=== PATIENT | female | born 1970 | race Caucasian/White ===

== ENCOUNTER → 2016-05-26 | Outpatient (CLI) | payer BC ==
[~2016-05-26] MED LIST: BACTRIM DS TABL1 TA2 PO; EC-NAPROSYN500 MG PO; FLEXERIL10 MG PO; HYDROCODON-ACE1 EA12 PO; MEDROL PO; NO MEDICATIONS; PREDNISONE50 MG PO; ROBAXIN500 MG PO; VOLTAREN75 MG PO; ZANTAC150 MG PO; ZOFRAN ODT4 MG SL
--- NOTE | ~2016-05-26 | US136 ---
[facility] A Service of [facility] RADIOLOGY TEXT RESULTS PATIENT: MARÍA MARCUS LOCATION: CNIV : 68 UNIT #: [id number] AGE: [address]: Sveta Levin APRN SEX: F ORDER DR: [id number] [facility] [address] [place], [place] [address] [id number] O MR#: [id number] Acc #: [id number] NAME: MARÍA MARCUS. : 1970 SEX: F STUDY DATE/TIME: 05/26/2016 14:39 UNIT: CNIV ROOM: STUDY DESCRIPTION: U/L Ext Art Study Ltd Bil Attending Physician: Sveta Levin A.P.R.N. Referring Physician: Sveta Levin A.P.R.N. Ordering Physician: Sveta Levin A.P.R.N. Primary Care Physician: Juan Meza M.D. MEDICAL IMAGING REPORT This report is preliminary unless electronic signature is present EXAM Ultrasound extremity arterial study LTD bilateral 05/26/2016 HISTORY Edema. Claudication right left x3 months. Numbness tingling 3 months toes bilaterally. Peripheral edema. Ankle-brachial indices performed bilaterally. All pressure measurements in millimeters of mercury. Right brachial pressure 141, left brachial pressure 132. FINDINGS Distal right lower extremity pressures as follows: Dorsalis pedis at ankle 147, posterior tibial at ankle 152, great toe 126. Ankle-brachial index 1.08. Pulse volume recordings within normal limits. On the left distal pressures as follows: Posterior tibial at ankle 157, dorsalis pedis at ankle 152, great toe 146. Ankle-brachial index 1.11. Pulse volume recordings normal. IMPRESSION 1. Ankle-brachial index 1.08 on the right and 1.11 on the left. These are normal values. There appears to be normal perfusion bilateral lower extremities through the level of the ankles at rest. 2. Please correlate with the patient's clinical status. If further anatomic assessment of bilateral lower extremity arteries would assist in management, consider CT angiography. Dictated by... Bradley Olea M.D. THIS IS AN ELECTRONICALLY VERIFIED REPORT Bradley Olea M.D. at 05/28/2016 5:[address] [facility] A Service of [facility] RADIOLOGY TEXT RESULTS PATIENT: MARÍA MARCUS LOCATION: [facility] : [birth year] UNIT #: [id number] AGE: [address]: Sveta Levin APRN SEX: F ORDER DR: Dave TD: 05/26/2016 18:42 JOB #: [id number] MEDICAL IMAGING REPORT COPY
== END | disposition home or self-care (01) ==
LOC: CNIV 14:30
DX: R60.0 Localized edema (principal)
CPT/HCPCS: 93922